=== PATIENT | female | born 1970 | race Hispanic/Latino ===

== ENCOUNTER 2021-01-13 23:11 | Emergency (ER) | payer OTHER ==
[2021-01-13 23:53] LABS: BASOPHILS % (AUTO) 0.4 % (0.0-5.0); EOSINOPHILS % (AUTO) 2.6 % (0.0-8.0); HEMATOCRIT 34.8 % (36-48); LYMPHOCYTES % (AUTO) 24.9 % (21.0-51.0); MEAN CORPUSCULAR HEMOGLOBIN 22.6 pg (27.0-33.0); MEAN CORPUSCULAR HGB CONC 30.5 g/dL (32.0-36.0); MEAN CORPUSCULAR VOLUME 74.2 fL (79-99); MONOCYTES % (AUTO) 11.3 % (3.0-13.0); NEUTROPHILS % (AUTO) 60.5 % (40.0-77.0); PLATELET COUNT (AUTO) 188 K/uL (130-400); RED BLOOD CELL COUNT(AUTO) 4.69 MIL/uL (4.00-5.50); RED CELL DISTRIBUTION WIDTH 16.3 % (11.0-15.5); WHITE BLOOD COUNT (AUTO) 7.7 K/uL (4.8-10.8)
[2021-01-13 23:57] LABS: APPEARANCE,URINE Cloudy (CLEAR); BILIRUBIN,URINE Negative (NEGATIVE); COLOR,URINE Yellow (YELLOW); GLUCOSE, URINE (UA) Negative (NEGATIVE); KETONES,URINE Trace mg/dL (NEGATIVE); LEUKOCYTE ESTERASE ,URINE Trace (NEGATIVE); NITRATE,URINE Negative (NEGATIVE); OCCULT BLOOD,URINE Large (NEGATIVE); PROTEIN,URINE POS 1+ mg/dL (NEGATIVE)
[2021-01-14 00:05] LABS: CREATININE 0.9 mg/dL (0.5-1.5); POTASSIUM 4.2 mmol/L (3.5-5.1)
[2021-01-14 00:10] LABS: ALBUMIN 3.8 g/dL (3.5-5.0); BILIRUBIN,TOTAL 0.2 mg/dL (0.2-1.0); TOTAL PROTEIN, SERUM 8.7 g/dL (6.0-8.3)
[2021-01-14 00:11] LABS: RBC,URINE >100 /HPF (0-1)
[2021-01-14 00:12] LABS: BACTERIA,URINE Moderate /HPF (None Seen); MUCUS,URINE Many LPF (None Seen)
[2021-01-14 00:13] LABS: CALCIUM OXALATE CRYSTALS,UR Rare /LPF (None Seen)
[2021-01-14] MEDS ORDERED: ONDANSETRON HCL 4 MG/2 ML VIAL ONE (00:13)
[2021-01-14] MEDS ORDERED: METOCLOPRAMIDE 10 MG/2 ML VIAL ONE (00:13)
[2021-01-14] MEDS ORDERED: KETOROLAC TROMETHAMINE 30MG/ML ONE (00:13)
[2021-01-14 00:32] LABS: PLATELET MORPHOLOGY LARGE PLTS PRESENT
[2021-01-14] MEDS ORDERED: CEFTRIAXONE SODIUM 2 GM VIAL ONE (01:17)
[2021-01-14] MEDS ORDERED: TAMSULOSIN HCL 0.4 MG CAP.ER.24H ONE (01:17)
[2021-01-14] MEDS ORDERED: SODIUM CHLORIDE 0.9% 50 ML IV ONE (01:18)
== END 2021-01-14 02:00 | disposition home or self-care (01) ==
LOC: EDH 23:11
DX: N23 Unspecified renal colic (principal); E86.0 Dehydration; N13.2 Hydronephrosis with renal and ureteral calculous obstruction
CPT/HCPCS: 36415; 74176; 80053; 81001; 83605; 83690; 85025; 87088; 96361; 96365; 96375; 99284; J0696; J1885; J2405; J2765

== ENCOUNTER 2021-08-02 14:13 | Emergency (ER) | payer OTHER ==
[~2021-08-02] VITALS: Ht 154.9 cm; Wt 55.3 kg
[2021-08-02] MEDS ORDERED: 0.9%NACL 1000ML 1,000 ML IV ONE ×2 (15:00→17:00)
[2021-08-02] MEDS ORDERED: MORPHINE 4 MG SYG IVP ONE (15:00)
[2021-08-02] MEDS ORDERED: ACETAMINOPHEN 325 MG TAB PO ONE (15:00)
[2021-08-02] MEDS ORDERED: ONDANSETRON 4MG INJ IVP ONE (15:00)
[2021-08-02] MEDS ORDERED: KETOROLAC 30MG VIAL (30MG/ML) IVP ONE (15:00)
[2021-08-02 15:18] LABS: APPEARANCE,URINE TURBID (CLEAR); BILIRUBIN,URINE NEGATIVE (NEGATIVE); COLOR,URINE RED (YELLOW); GLUCOSE, URINE (UA) NEGATIVE (NEGATIVE); KETONES,URINE 15 mg/dL (NEGATIVE); LEUKOCYTE ESTERASE ,URINE MODERATE (NEGATIVE); NITRATE,URINE POSITIVE (NEGATIVE); OCCULT BLOOD,URINE LARGE (NEGATIVE); PH,URINE 6.5 (5.0-8.0); PROTEIN,URINE >=300 mg/dL (NEGATIVE)
[2021-08-02 15:21] LABS: HCG,QUAL RESULT NEGATIVE (NEGATIVE)
[2021-08-02 15:29] LABS: BACTERIA,URINE Rare /HPF (None Seen); RBC,URINE TNTC /HPF (0-1); SQUAMOUS EPITHELIAL CELL,UR None Seen /HPF (0-2); WBC,URINE 0-1 /HPF (0-1)
[2021-08-02 15:29] LABS: BASOPHILS % (AUTO) 0.4 % (0.0-5.0); EOSINOPHILS % (AUTO) 1.2 % (0.0-8.0); HEMATOCRIT 26.6 % (36-48); LYMPHOCYTES % (AUTO) 13.4 % (21.0-51.0); MEAN CORPUSCULAR HGB CONC 29.7 g/dL (32.0-36.0); MEAN CORPUSCULAR VOLUME 74.1 fL (79-99); MONOCYTES % (AUTO) 7.5 % (3.0-13.0); NEUTROPHILS % (AUTO) 77.1 % (40.0-77.0); PLATELET COUNT (AUTO) 155 K/uL (130-400); RED BLOOD CELL COUNT(AUTO) 3.59 MIL/uL (4.00-5.50); RED CELL DISTRIBUTION WIDTH 15.7 % (11.0-15.5); WHITE BLOOD COUNT (AUTO) 7.6 K/uL (4.8-10.8)
[2021-08-02 15:40] LABS: CREATININE 0.7 mg/dL (0.5-1.5); POTASSIUM 3.5 mmol/L (3.5-5.1)
[2021-08-02 15:50] LABS: ALBUMIN 3.3 g/dL (3.5-5.0); TOTAL PROTEIN, SERUM 7.2 g/dL (6.0-8.3)
[2021-08-02 16:01] LABS: BILIRUBIN,TOTAL 0.2 mg/dL (0.2-1.0)
[2021-08-02 16:39] VITALS: BP 135/72
[2021-08-02] MEDS ORDERED: PROMETHAZINE HCL 25 MG/ML 1ML AMPULE IM ONE (17:00)
[2021-08-02] MEDS ORDERED: CEPH500C2 PO (17:21)
[2021-08-02] MEDS ORDERED: MEDR10TA PO (17:21)
[2021-08-02] MEDS ORDERED: TRAM50TA4 PO (17:21)
[2021-08-02] MEDS ORDERED: NAPR375T6 PO (17:21)
== END 2021-08-02 19:12 | disposition home or self-care (01) ==
LOC: EDH 14:13
DX: D64.9 Anemia, unspecified (principal); D25.9 Leiomyoma of uterus, unspecified; N92.0 Excessive and frequent menstruation with regular cycle; N94.6 Dysmenorrhea, unspecified; Z79.1 Long term (current) use of non-steroidal anti-inflammatories (NSAID); Z79.899 Other long term (current) drug therapy
CPT/HCPCS: 36415; 74176; 76856; 80053; 81001; 81025; 83690; 84484; 84702; 85025; 87088; 93005; 96361; 96372; 96374; 96375; 99285; J1885; J2270; J2405; J2550; J7030

== ENCOUNTER 2023-01-09 15:11 | Emergency (ER) | payer OTHER, BC ==
[~2023-01-09] VITALS: Ht 152.4 cm; Wt 56.7 kg
[~2023-01-09 15:11] MED LIST: CEPH500C2 PO; MEDR10TA PO; NAPR375T6 PO; TRAM50TA4 PO
[2023-01-09 16:22] LABS: BASOPHILS % (AUTO) 0.3 % (0.0-5.0); EOSINOPHILS % (AUTO) 2.8 % (0.0-8.0); HEMATOCRIT 38.7 % (36-48); LYMPHOCYTES % (AUTO) 17.3 % (21.0-51.0); MEAN CORPUSCULAR HEMOGLOBIN 23.8 pg (27.0-33.0); MEAN CORPUSCULAR HGB CONC 30.2 g/dL (32.0-36.0); MEAN CORPUSCULAR VOLUME 78.7 fL (79-99); MONOCYTES % (AUTO) 7.8 % (3.0-13.0); NEUTROPHILS % (AUTO) 71.5 % (40.0-77.0); PLATELET COUNT (AUTO) 156 K/uL (130-400); RED BLOOD CELL COUNT(AUTO) 4.92 MIL/uL (4.00-5.50); RED CELL DISTRIBUTION WIDTH 17.2 % (11.0-15.5); WHITE BLOOD COUNT (AUTO) 7.4 K/uL (4.8-10.8)
[2023-01-09 16:33] LABS: CREATININE 0.7 mg/dL (0.5-1.5); POTASSIUM 4.1 mmol/L (3.5-5.1)
[2023-01-09 16:37] LABS: ALBUMIN 3.7 g/dL (3.5-5.0); TOTAL PROTEIN, SERUM 8.6 g/dL (6.0-8.3)
[2023-01-09] MEDS ORDERED: DICYCLOMINE HCL 10 MG/5 ML ML PO ONE (17:00)
[2023-01-09] MEDS ORDERED: MAG/ALUM/SIMETH 30 ML UDCUP PO ONE (17:00)
[2023-01-09] MEDS ORDERED: LIDOCAINE HCL 2% VISCOUS 15 ML UDCUP PO ONE (17:00)
[2023-01-09 17:02] LABS: APPEARANCE,URINE CLEAR (CLEAR); BILIRUBIN,URINE NEGATIVE (NEGATIVE); COLOR,URINE LIGHT-YELLOW (YELLOW); GLUCOSE, URINE (UA) NEGATIVE (NEGATIVE); KETONES,URINE NEGATIVE (NEGATIVE); LEUKOCYTE ESTERASE ,URINE NEGATIVE Leu/uL (NEGATIVE); NITRATE,URINE NEGATIVE (NEGATIVE); OCCULT BLOOD,URINE NEGATIVE (NEGATIVE); PH,URINE 7.5 (5.0-8.0); PROTEIN,URINE NEGATIVE (NEGATIVE); UROBILINOGEN,URINE 0.2 mg/dL (0.2-1.0)
[2023-01-09 17:12] LABS: MUCUS,URINE RARE LPF (None Seen); RBC,URINE 0-1 /HPF (0-1); SQUAMOUS EPITHELIAL CELL,UR RARE /HPF (0-2); WBC,URINE 0-1 /HPF (0-1)
[2023-01-09] MEDS ORDERED: ESOM20CA60 PO (18:26)
[2023-01-09 18:43] VITALS: BP 154/90
== END 2023-01-09 19:14 | disposition home or self-care (01) ==
LOC: EDH 15:11
DX: K29.00 Acute gastritis without bleeding (principal); R10.9 Unspecified abdominal pain; Z79.899 Other long term (current) drug therapy; Z98.890 Other specified postprocedural states
CPT/HCPCS: 36415; 76705; 80053; 81001; 83690; 84484; 85025; 93005

== ENCOUNTER 2025-05-26 16:57 | Inpatient (IN) | payer BC ==
[~2025-05-26] VITALS: Ht 154.9 cm; Wt 57.2 kg
[~2025-05-26 16:57] MED LIST changes: +ESOM20CA60 PO; +NAPR-1505 PO; -NAPR375T6 PO
[2025-05-26 18:07] LABS: IMMATURE GRANULOCYTE ABSOLUTE 0.01 K/uL (0-1); NUCLEATED RED BLOOD CELLS 0.0 % (0.0-0.19); PLATELET COUNT (AUTO) 180 K/uL (130-400); RED BLOOD CELL COUNT(AUTO) 4.76 MIL/uL (4.00-5.50); RED CELL DISTRIBUTION WIDTH 12.4 % (11.0-15.5); WHITE BLOOD COUNT (AUTO) 5.0 K/uL (4.8-10.8)
[2025-05-26 18:19] LABS: CREATININE 0.6 mg/dL (0.5-1.0); GLOMERULAR FILTR. RATE CALC 105.0 mL/min (>90); GLUCOSE,RANDOM 77.0 mg/dL (70-105); SODIUM SERUM 141.0 mmol/L (136-145); UREA NITROGEN, BLOOD 10.0 mg/dL (7-18)
--- NOTE | 2025-05-26 18:26 | ERN ---
ED Note History of Present Illness Stated Complaint: COUGH, CONGESTION Chief Complaint: Cough Time Seen by MD: 17:11 Time Seen by Midlevel: 17:11 Dictation: The Patient is a 54-year-old female who presents to the emergency department with cough and nasal congestion, sore throat onset three days ago. Patient also reports nonbloody diarrhea. Denies any fevers. Patient reports she became concerned today because she developed severe chest pain at around 2:00 p.m. that lasted about 20 minutes and then resolved. Allergies: Coded Allergies: No Allergy Information Available (Verified Allergy, Unknown, 08/02/21) No Known Drug Allergies (Unverified Allergy, Unknown, 01/09/23) Home Meds Active Scripts Esomeprazole Magnesium (Nexium 24Hr) 20 Mg Capsule., 20 MG PO DAILY, #30 CAP Prov:SALLY CROCKETT MD 01/09/23 Naproxen (Naproxen) 375 Mg Tablet.dr, 375 MG PO BID for 5 Days, #10 TAB Prov:KAREN BRICENO 08/02/21 Cephalexin (Cephalexin) 500 Mg Capsule, 500 MG PO TID for 10 Days, #30 CAP Prov:KAREN BRICENO 08/02/21 Tramadol Hcl (Tramadol HCl) 50 Mg Tablet, 50 MG PO BID for 5 Days, #10 TAB Prov:KAREN BRICENO 08/02/21 Medroxyprogesterone Acetate (Provera) 10 Mg Tablet, 10 MG PO DAILY for 15 Days, #15 TAB Prov:KAREN BRICENO 08/02/21 Past Medical History Past Medical History: No Pertinent History Surgical History: BTL, Social History: Negative RN Note Reviewed/Agreed w/PFSH: Yes Review of System Dictation Constitutional: Negative for fever,chills, and weight loss Eyes: Negative for injury, pain,redness, and discharge ENT: Negative for injury,pain or swelling positive for sore throat Cardiovascular: Negative for palpitations, and edema positive for chest pain Respiratory: Negative for shortness of breath,and wheezing, positive for cough Abdomen/GI: Negative for abdominal pain, nausea, vomiting, and constipation positive for diarrhea Back: Negative for injury and pain : Negative for injury, bleeding and discharge MS/Extremity: Negative for injury and deformity Skin: Negative for rash, and discoloration Neuro: Negative for headache, weakness, numbness, tingling, and seizure Psych: Negative for suicide ideation, homicidal ideation, and hallucinations Initial Vital Sign VS Vital Signs Date Time Temp Pulse Resp B/P (MAP) Pulse Ox O2 Delivery O2 Flow Rate FiO2 05/26/25 16:58 99.0 89 16 156/93 98 Room Air 0 05/26/25 18:13 21 Physical Exam Dictation Vital Signs reviewed General Appearance: Alert, oriented x 3, no acute distress, well developed, nourished. Head and Face: non-traumatic. Eyes: PERRL, pink conjunctivas, eyelid no trauma, anterior chamber with arcus senilis. Ears: Pinnas intact and no signs of trauma or erythema ear canals clear and no discharge TM no erythema Nose: No discharge, no bleeding. Oropharynx: Mouth normal, tongue pink. pharynx clear,no erythema, tonsils no exudates, no abscesses noted, mucous membrane moist Neck: Supple, non-tender, no thyromegaly, no masses, no JVD, no bruits Breast:Deferred Chest:No tenderness, no crepitus, no paradoxical movement, no retractions Lungs:Clear, well-ventilated, symmetric, no rales, no wheezing, no rhonchi, no stridor, good breath sounds bilaterally Heart: Regular rate, regular rhythm, no murmur, no gallops Vascular: no peripheral edema, Abdomen: Soft, positive bowel sounds, nondistended, no guarding, nontender, no rebound, no masses no hepatomegaly, no splenomegaly, no Arce's sign, no hernias. Rectal: Deferred Genital: Deferred Neurological: Normal speech, motor function intact, sensory function intact Musculoskeletal: Neck nontender, full range of motion, back nontender, full range of motion, Extremities: nontender, full range of motion Skin: Color pink, dry, no turgor, no rash, no lacerations, no abrasions, no contusions. Lymphatic: Deferred Results (Laboratory/Radiology) Laboratory/Radiology Laboratory Tests Test 05/26/25 17:56 05/26/25 18:10 05/26/25 19:11 White Blood Count 5.0 K/uL (4.8-10.8) Red Blood Count 4.76 MIL/uL (4.00-5.50) Hemoglobin 13.6 g/dL (12.0-16.0) Hematocrit 41.7 % (36-48) Mean Corpuscular Volume 87.6 fL (79-99) Mean Corpuscular Hemoglobin 28.6 pg (27.0-33.0) Mean Corpuscular Hemoglobin Concent 32.6 g/dL (32.0-36.0) Red Cell Distribution Width 12.4 % (11.0-15.5) Platelet Count 180 K/uL (130-400) Mean Platelet Volume 11.4 fL (7.5-10.5) H Immature Granulocyte % (Auto) 0.2 % (0-1) Neutrophils (%) (Auto) 53.3 % (40.0-77.0) Lymphocytes (%) (Auto) 29.6 % (21.0-51.0) Monocytes (%) (Auto) 10.5 % (3.0-13.0) Eosinophils (%) (Auto) 6.0 % (0.0-8.0) Basophils (%) (Auto) 0.4 % (0.0-5.0) Neutrophils # (Auto) 2.7 K/uL (1.8-7.7) Lymphocytes # (Auto) 1.5 K/uL (1.0-4.8) Monocytes # (Auto) 0.5 K/uL (0.1-1.0) Eosinophils # (Auto) 0.30 K/uL (0.00-0.70) Basophils # (Auto) 0.02 K/uL (0.00-0.20) Absolute Immature Granulocyte (auto 0.01 K/uL (0-1) Nucleated Red Blood Cells 0.0 % (0.0-0.19) Sodium Level 141 mmol/L (136-145) Potassium Level 4.1 mmol/L (3.5-5.1) Chloride Level 102 mmol/L (101-111) Carbon Dioxide Level 33 mmol/L (21-32) H Blood Urea Nitrogen 10 mg/dL (7-18) Creatinine 0.6 mg/dL (0.5-1.0) Glomerular Filtration Rate Calc 105 mL/min (>90) Random Glucose 77 mg/dL (70-105) Total Calcium 9.3 mg/dL (8.5-10.1) Troponin I High Sensitivity 108 ng/L (4-50) *H 99 ng/L (4-50) *H Influenza Type A Antigen Negative For Type A Influenza Type B Antigen Negative For Type B SARS-CoV-2 Antigen (Rapid) PRESUMPTIVE NEGATIVE Group A Streptococcus Rapid negative (NEGATIVE) REASON: sob ORDERING PHYSICIAN: NATHANIEL MENDEZ HUMIDIFIER OPERATOR PROCEDURE: CXR1VW - CHEST 1VW CLINICAL INFORMATION Shortness of breath COMPARISON None. TECHNIQUE Frontal view chest. FINDINGS Lines and tubes: None Lungs: Clear. Pleura: Unremarkable. No effusion or pneumothorax. Cardiomediastinal Silhouette: Unremarkable. Bones: Normal for age. Soft Tissues: Normal. IMPRESSION No acute cardiopulmonary findings. /[place] Labs Reviewed?: Yes EKG: (+) rhythm (Sinus rhythm) EKG Comment: Date:05/26/2025 Time:1745 Ventricular rate:80 WA interval:146 QRS duration:89 QT/QTc:407/471 EKG interpretation: Sinus rhythm Reviewed by ED Attending no STEMI ED Course ED Course Orders Procedure Category Date Status Time Covid19 (Sars Antigen LAB 05/26/25 Complete Rapid) 17:31 Influenza Type A & B, LAB 05/26/25 Complete Rapid 17:31 Rapid (Group A Strep) LAB 05/26/25 Complete 17:31 Cbc With Differential LAB 05/26/25 Complete 17:31 Chest 1vw RAD 05/26/25 Resulted 17:31 12 Lead Ekg Tracing- EKG 05/26/25 Logged Technical 17:31 Troponin I High LAB 05/26/25 Complete Sensitivity 17:31 Basic Metabolic Panel LAB 05/26/25 Complete 17:31 Guaifenesin-Codeine PHA 05/26/25 Complete Syrup 5ml (Robitussi 18:00 Aspirin 325mg Tab PHA 05/26/25 Complete (Aspirin 325mg Tab) 19:00 Troponin I High LAB 05/26/25 Complete Sensitivity 18:52 Edm Admit Bridge Order ADM 05/26/25 Transmitted 19:58 Vital Signs(Adult CPOE 05/26/25 Transmitted Hospitalist) 20:03 Nurse To Enter Home CPOE 05/26/25 Transmitted Medication 20:03 Admit Orders ADM 05/26/25 Transmitted 20:03 Troponin I High LAB 05/26/25 Logged Sensitivity 23:30 Troponin I High LAB 05/27/25 Verified Sensitivity 05:30 Troponin I High LAB 05/27/25 Verified Sensitivity 11:30 Regular DIET 05/27/25 Transmitted Breakfast Cbc With Differential LAB 05/27/25 Verified 04:00 Basic Metabolic Panel LAB 05/27/25 Verified 04:00 Magnesium LAB 05/27/25 Verified 04:00 Acetaminophen 325 Tab PHA 05/26/25 In Process (Tylenol 325mg Tab 20:30 Ondansetron 4mg PHA 05/26/25 In Process Tablet (Zofran 4mg 20:30 Enoxaparin Sodium 30 PHA 05/27/25 In Process Mg/0.3 Ml (Lovenox) 09:00 Current Medications Medications (Trade) Dose Ordered Sig/Kristie Route PRN Reason Start Time Stop Time Status Last Admin Dose Admin Acetaminophen (TYLenol 325MG TAB) 650 mg Q6H PRN PO MILD PAIN (1-3) 05/26/25 20:30 06/25/25 20:29 Aspirin (Aspirin 325mg Tab) 325 mg ONCE ONCE PO 05/26/25 19:00 05/26/25 19:01 DC 05/26/25 19:10 Enoxaparin Sodium (Lovenox) 30 mg DAILY SQ 05/27/25 09:00 06/26/25 08:59 Guaifenesin/ Codeine Phosphate (RobiTUSSin AC 5 ML SYRUP) 10 ml ONCE ONCE PO 05/26/25 18:00 05/26/25 18:01 DC 05/26/25 18:31 Ondansetron HCl (zoFRAN 4MG TABLET) 4 mg Q6H PRN PO NAUSEA/VOMITING 05/26/25 20:30 06/25/25 20:29 Vital Signs Date Time Temp Pulse Resp B/P (MAP) Pulse Ox O2 Delivery O2 Flow Rate FiO2 05/26/25 20:04 98.1 88 16 124/74 98 Room Air* 0 21 05/26/25 18:13 98.1 81 16 134/88 98 Room Air* 0 21 05/26/25 16:58 99.0 89 16 156/93 98 Room Air 0 Medical Decision Making MDM MDM: The Patient is a 54-year-old female who presents to the emergency department with cough and nasal congestion, sore throat onset three days ago. Patient also reports nonbloody diarrhea. Denies any fevers. Patient reports s he became concerned today because she developed severe chest pain at around 2:00 p.m. that lasted about 20 minutes and then resolved. CBC showed no leukocytosis, no anemia, chemistry showed no electrolyte imbalance, troponin of 108. Chest x-ray showed no acute pathology. Due to patient's chest pain and elevated troponin we will admit for further evaluation and management. Differential diagnosis: Upper respiratory infection, pneumonia, ACS, costochondritis Comorbidities: None Tests considered and not ordered secondary to shared decision making include: none Previous outside records reviewed: none Risk of complication and/or morbidity or mortality of patient management: The patient meets criteria for admission. Need for emergency major/minor surgery: No There are no social concerns with this patient. I independently interpreted the tests I ordered (labs, urinalysis, etc.). I discussed the case with the hospitalist for admission. who accepts admission I discussed the case with the following specialists: none. Historian: pateint. I independently interpreted imaging studies and EKGs that I ordered (US, CT, XR, EKG, etc.). External chart review: none. Medical management and examination interpretation discussions were had by me with other qualified healthcare professionals as indicated for the patient's care. DX & DISP Disposition: Inpatient Decision to Admit Date: May 26, 2025 Decision to Admit Time: 19:59 Departure Impression: Primary Impression: Chest pain Additional Impression: Elevated troponin Condition: Stable Referrals: FREEMAN RYAN MD (PCP) I have reviewed the case, and I agree with, Diagnosis and Plan NATHANIEL MENDEZP May 26, 2025 18:26
[2025-05-26 18:49] LABS: RAPID GROUP A STREP negative (NEGATIVE)
[2025-05-26 18:55] LABS: COVID19 (SARS ANTIGEN RAPID) PRESUMPTIVE NEGATIVE (NEGATIVE)
[2025-05-26] MEDS: ASPIRIN 325MG TAB PO ONE (19:10)
[2025-05-26 19:48] LABS: INFLUENZA TYPE A Negative For Type A (NEGATIVE); INFLUENZA TYPE B Negative For Type B (NEGATIVE)
--- NOTE | 2025-05-26 20:14 | HMCIMG ---
CLINICAL INFORMATION Shortness of breath COMPARISON None. TECHNIQUE Frontal view chest. FINDINGS Lines and tubes: None Lungs: Clear. Pleura: Unremarkable. No effusion or pneumothorax. Cardiomediastinal Silhouette: Unremarkable. Bones: Normal for age. Soft Tissues: Normal. IMPRESSION No acute cardiopulmonary findings. /[place]
--- NOTE | 2025-05-27 06:36 | EKG ---
[facility] Test Date: 2025-05-26 Test Time: 17:45:58 Pat Name: CASSIE CONRAD Department: EDHIP Room: ED 04 Gender: F Client Business Manager: [id number] : 1970 Requested By: NATHANIEL MENDEZ Order Number: [id number] Reading MD: Elliot Luis Measurements Intervals [place] Rate: 80 P: 54 ND: 146 QRS: 36 QRSD: 89 T: 69 QT: 407 QTc: 471 Interpretive Statements Sinus rhythm Compared to ECG 01/09/2023 16:16:16 No significant changes Electronically Signed On 05-27-2025 18:20:32 CDT by Elliot Luis Please click the below link to view image of tracing.
[2025-05-27 06:41] LABS: IMMATURE GRANULOCYTE ABSOLUTE 0.01 K/uL (0-1); NUCLEATED RED BLOOD CELLS 0.0 % (0.0-0.19); PLATELET COUNT (AUTO) 165 K/uL (130-400); RED BLOOD CELL COUNT(AUTO) 4.50 MIL/uL (4.00-5.50); RED CELL DISTRIBUTION WIDTH 12.6 % (11.0-15.5); WHITE BLOOD COUNT (AUTO) 4.4 K/uL (4.8-10.8)
[2025-05-27 06:53] LABS: CREATININE 0.7 mg/dL (0.5-1.0); GLOMERULAR FILTR. RATE CALC 101.0 mL/min (>90); GLUCOSE,RANDOM 90.0 mg/dL (70-105); SODIUM SERUM 140.0 mmol/L (136-145); UREA NITROGEN, BLOOD 12.0 mg/dL (7-18)
[2025-05-27 08:00] VITALS: BP 132/76; PULSE 78; RESP 17; TEMP 97.7
[2025-05-27] MEDS: ENOXAPARIN SODIUM 30 MG/0.3 ML SQ SCH (08:25)
[2025-05-27 08:46] VITALS: O2SAT 98
[2025-05-27 12:00] VITALS: BP_SYST 146; BP_SYST 153; BP_DIAS 71; BP_DIAS 76; PULSE 77; RESP 15; TEMP 97.7
[2025-05-27] MEDS: LORATAdine/pseudophEPHEDrine 5/120 MG 1 EACH TAB.SR.12H PO SCH (13:36)
--- NOTE | 2025-05-27 15:05 | NUR ---
DCP:HOME Pt currently lives alone in her home. Pt does not have any DME, home health, or provider services. Pt states that she is able to complete ADLs independently. PCP is Dr. Alejo Ragsdale and uses [facility] for any RX needs. At PA pt will want to go home and family can assist with transportation. Addendum: 05/27/25 at 1507 by MIKO KAUR SS Amended: Links added.
[2025-05-27 16:00] VITALS: BP 133/75; PULSE 73; RESP 17; TEMP 97.6
[2025-05-27] MEDS: BENZONATATE 100 MG CAPSULE PO SCH ×2 (18:27→20:17)
[2025-05-27] MEDS ORDERED: BENZONATATE 100 MG CAPSULE PO PRN (18:30)
--- NOTE | 2025-05-27 19:39 | CONS ---
CONSULT NOTE: CARDIOLOGY Reason for consult: Chest pain HPI/story at presentation: This is a pleasant 54-year-old female with past medical history as were present with complaints of atypical chest pain. Chest pain was in the setting of cough and associated with this over the last few days. However, persistent pain was subsequently felt associated with elevated troponins and cardiology was consulted for further evaluation management Past medical history: See below Allergies, Meds See chart Review of systems Review of Systems Constitutional: Negative for chills and fever. HENT: Negative for ear discharge and ear pain. Eyes: Negative for photophobia and discharge. Respiratory: Negative for cough, sputum production and stridor. Cardiovascular: Negative for chest pain and palpitations. Gastrointestinal: Negative for diarrhea and vomiting. Genitourinary: Negative for frequency. Musculoskeletal: Negative for myalgias. Skin: Negative for rash. Neurological: Negative for focal weakness and seizures. Endo/Heme/Allergies: Negative for polydipsia. Psychiatric/Behavioral: Negative for hallucinations. Vitals see chart PHYSICAL EXAMINATION GENERAL: The patient is alert and oriented*3 HEENT: Nonicteric sclerae, non traumatic HEART: Regular rate and rhythm with no murmurs LUNGS: Clear to auscultation bilaterally ABDOMEN: No acute issues, non tender GENITAL, RECTAL: deferred SKIN: No rash NEUROLOGIC: NFND EXTREMITIES: No edema ASSESSMENT CHEST PAIN, ELEVATED TROPONIN Atypical presentation The setting of cough and congestion Stress, echo ordered, 05/2025 CORE MEASURES Pending OTHER MEDICAL PROBLEMS Reviewed PLAN 05/27/2025 atypical symptoms, possible cough related chest pain versus underlying issues with infectious etiology but also had some typical anginal features with elevated troponins and therefore, we will rule out cardiogenic etiology with stress test, echocardiogram. Seen and examined 05/27/2025 at around 8 PM. ATTESTATION I was involved substantially in the care of this patient Number and complexity of problems addressed: 1 acute illness with systemic features Amount and or complexity of data Review of prior external note(s) from each unique source: 2+ Ordering of each unique test : 0 Review of the result(s) of each unique test: 2+ Assessment requiring an independent historian(s): No Independent interpretation of test performed by another MD/QHCP/appropriate source (not separately reported) : No Discussion of management or test interpretation with external MD/QHCP/appropriat e source (not separately reported) : No Risk status (cardiac, billing related): Moderate JOY ZAVALETA MD May 27, 2025 19:39
[2025-05-27] MEDS: DOXYCYCLINE HYCLATE 100 MG TABLET PO SCH (20:15)
--- NOTE | 2025-05-27 20:46 | PN ---
MEDICAL MANAGEMENT FOLLOWUP NOTE DATE OF SERVICE: 05/27/2025 SUBJECTIVE: The patient is seen and examined at bedside today. No fever. No chills. Complains of some cough, sore throat. The patient also complains of rhinorrhea. No bleeding tendency. No rashes and she is tolerating antibiotic. PHYSICAL EXAMINATION: VITAL SIGNS: Temperature 98.3. EYES: No icterus. Pupils equal and reactive. HENT: No oral thrush seen. Moist oral mucosa. NECK: Supple. No JVD or thyromegaly. LUNGS: Good air entry. No rales. No rhonchi. CARDIOVASCULAR SYSTEM: S1 and S2 regular. No murmur heard. ABDOMEN: Full, soft, nontender. Bowel sound is present CENTRAL NERVOUS SYSTEM: Awake, alert, oriented x 3. No focal deficits. SKIN: No rashes. No itchiness. LYMPHATIC: No peripheral lymphadenopathy. BACK: No deformity. No pressure ulcer. MUSCULOSKELETAL: No joint swelling. No erythema or tenderness. ASSESSMENT: A 54-year-old female presented with fever, weakness, and chest pain. Current problems include: * Elevated troponin. * Pneumonia. * Possible sinusitis. * DVT. PLAN: * Continue ceftriaxone. * Continue Claritin. * Continue doxycycline. * Continue pain management. * Continue nutritional supports. * Monitor electrolytes. * The patient will be followed up closely. TID: [id number] RECEIPT: [id number]
--- NOTE | 2025-05-27 23:08 | HP ---
DATE OF ADMISSION: 05/26/2025 HISTORY AND PHYSICAL PRESENTING COMPLAINT: Cough, nasal congestion and fever. HISTORY OF PRESENT ILLNESS: This is a 54-year-old female with no significant past medical history, presented to the Emergency Room with cough and nasal congestion. The patient's symptoms have been going on for 3 days. The patient decided to come to the Emergency Room today due to chest pain. Pain localized to both sides, but was on the right. The patient denied palpitation or orthopnea. While in the ER, the patient was found with troponin of 108. EKG shows normal sinus with non-STEMI. PAST MEDICAL HISTORY: None. PAST SURGICAL HISTORY: * section. * Bilateral tubal ligation. ALLERGIES: No known drug allergies. HOME MEDICATIONS: None. SOCIAL HISTORY: No alcohol, tobacco or illicit drug use. FAMILY HISTORY: Noncontributory. REVIEW OF SYSTEMS: Greater than 10 systems were reviewed, negative except as documented above. PHYSICAL EXAMINATION: GENERAL: Middle-aged female, awake. VITAL SIGNS: Temperature 97.7, pulse 70, respiratory rate 18, BP 134/76. EYES: No icterus. Pupils equal and reactive. HENT: No oral thrush seen. Moist oral mucosa. NECK: Supple. No JVD or thyromegaly. LUNGS: Good air entry. Crackles bilaterally. CARDIOVASCULAR SYSTEM: S1 and S2 regular. No murmur heard. ABDOMEN: Full, soft, nontender. Bowel sounds are present. CENTRAL NERVOUS SYSTEM: Awake, alert, oriented x 3. No focal deficits. SKIN: No rashes. No itchiness. LYMPHATIC: No peripheral lymphadenopathy. BACK: No deformity. No pressure ulcer. MUSCULOSKELETAL: No joint swelling, erythema or tenderness. LABORATORY DATA: Sodium 141, potassium 4.1, BUN 10, creatinine 0.6. WBC 5.0, hemoglobin 13.6, platelets 180. Influenza antigen negative. COVID-19 negative. RADIOLOGY: Chest x-ray unremarkable. ASSESSMENT: A 54-year-old female presented with chest pain, cough, fever and congestion. Current problems include: * Atypical chest pain. * Pneumonia. * Cough. * Elevated troponin. PLAN: * Admit the patient to medical floor telemetry. * Troponin will be trended. * Start the patient on Lovenox. * Start the patient on ceftriaxone. * The patient will be given doxycycline. * The patient also will be given Claritin. * Cardiology evaluation. * Monitor electrolyte and correct as needed. TID: [id number] RECEIPT: [id number] MTDD
--- NOTE | 2025-05-28 06:14 | NUR ---
PT NOTIFIED NOT TO EAT OR DRINK PRIOR TO NM CARDIAC STRESS TEST PER PROVIDER.
[2025-05-28 06:18] LABS: NUCLEATED RED BLOOD CELLS 0.0 % (0.0-0.19); PLATELET COUNT (AUTO) 157.0 K/uL (130-400); RED BLOOD CELL COUNT(AUTO) 4.68 MIL/uL (4.00-5.50); RED CELL DISTRIBUTION WIDTH 12.6 % (11.0-15.5); WHITE BLOOD COUNT (AUTO) 4.9 K/uL (4.8-10.8)
--- NOTE | 2025-05-28 06:24 | NUR ---
PT TOLD NURSE THEY HAVE BEEN NPO SINCE 10 PM 05/27/25 AND HAVE NOT HAD ANYTHING TO EAT OR DRINK. PT EDUCATED ON THE IMPORTANCE OF BEING NPO PRIOR TO NM CARDIAC STRESS TEST. PT VERBALIZED UNDERSTANDING.
[2025-05-28 06:47] LABS: CREATININE 0.8 mg/dL (0.5-1.0); GLOMERULAR FILTR. RATE CALC 86.0 mL/min (>90); GLUCOSE,RANDOM 94.0 mg/dL (70-105); SODIUM SERUM 139.0 mmol/L (136-145); UREA NITROGEN, BLOOD 18.0 mg/dL (7-18)
--- NOTE | 2025-05-28 07:12 | NUR ---
ASSUMED PATIENT CARE AT THIS TIME
--- NOTE | 2025-05-28 07:51 | HMCIMG ---
EXAM: CR Paranasal Sinuses, 4 views. CLINICAL HISTORY: Sinusitis. COMPARISON: None provided. FINDINGS: No acute fracture or aggressive appearing osseous lesion. The paranasal sinuses are grossly clear. No air-fluid level or paranasal opacification. Unremarkable soft tissues. IMPRESSION: No facial fracture. Grossly sinuses. /[place]
--- NOTE | 2025-05-28 09:59 | NUR ---
PER SANTY MARBLE POLISHER HAND, OK FOR PATIENT TO EAT BREAKFAST BUT TO AVOID CAFFEINE BEFORE STRESS TEST AT NOON TIME, PATIENT RESTING IN BED, CALL LIGHT IN REACH
[2025-05-28] MEDS: REGADENOSON 0.4 MG/5 ML PF SYG IVP ONE ×2 (12:54→12:58)
--- NOTE | 2025-05-28 14:23 | NUR ---
UNABLE TO DO 12PM VITALS DUE TO PATIENT BEING IN [place]
[2025-05-28 15:00] VITALS: O2SAT 99
--- NOTE | 2025-05-28 15:11 | NUR ---
REPORT GIVEN TO MARIE BEAVER, REJI SENT UP WITH PATIENT
[2025-05-28 15:30] VITALS: BP 141/76; PULSE 85; RESP 18; TEMP 97.5
--- NOTE | 2025-05-28 18:33 | HMCSR ---
APPROVED REPORT Height: 5 ft 1in Weight: 126 lbs TEST INDICATIONS Chest Pain The imaging protocol used to acquire images was Rest Tc-99m/stress Tc-99m 1 day Consent: The procedure was explained and understood by the patient. Informerd consent was witnessed Deepthi Mcqueen RN First, low dose rest was performed then high dose stress. RESTING DATA: The resting ekg shows: NSR Rest SPECT myocardial perfusion imaging was performed in supine position minutes following the intra venous injection of 11 mCi of Tc-99m Tetrofosmin. Time of rest injection: 12:30: Date: 05/28/2025 PHARMACOLOGIC STRESS: Pharmacologic stress test was performed by injecting regadenoson 0.4 mg IV push followed by the intra venous injection of 30 mCi of Tc-99m Tetrofosmin. Time of stress injection: 14:20: Date: 05/28/2025 Heart Rate at time of stress injection: 81 bpm. Gated Stress SPECT was performed 60 minutes after stress injection. The images were gated to evaluate regional wall motion and calculate left ventricular ejection fracti on. STRESS DETAILS Reason for Termination: Infusion complete Stress Symptoms: [place] Max HR Achieved: 121 bpm % of APMHR Achieved: 87 Max Blood Pressure: 138/62 mmHg Stress ECG: NSR LV PERFUSION Evidence of a large area of mild ischemia involving the anterior wall. EF was normal. Conclusion Evidence of a large area of mild ischemia involving the anterior, anteroseptal wall. EF was normal.
--- NOTE | 2025-05-28 18:37 | HMCSR ---
APPROVED REPORT EXAM: Two-dimensional and M-mode echocardiogram with Doppler and color Doppler. INDICATION ICD: Chest Pain 2D Dimensions RVDd2.9 cmLVEF(%)60.7 (>50%)LVED Vol(simp.)60.9 mL IVSd0.7 (0.7-1.1cm)FS(%)32 %LVES Vol(simp.)28.2 mL LVDd4.1 (3.8-5.6cm)LA (2D)2.8 (1.6-4.0cm)LVEF(%, simp.)54 % PWd1.0 (0.7-1.1cm)Ao Root(2D)2.1 (2.0-3.7cm)LA ESV INDEX (BP)18.18 mL/m2 LVDs2.8 (2.5-4.0cm)LVOT diam1.9 (1.8-2.4cm) Deformation Strain Apical 4-17.0 % Apical 2-15.2 % Apical 3-16.9 % Global Strain-16.3 % M-Mode Dimensions LA (MM)2.6 (1.6-4.0cm) Ao Root(MM)2.3 (2.0-3.7cm) Aortic Valve AoV Vmax1.2 m/Melanie Peak GR5.9 mmHgLVOT Vmax0.9 m/s AoV VTI0.2 mAo Mean GR3.2 mmHgLVOT VTI0.17 m TAHIR (VMAX)1.96 cm2AVA (VTI) 1.9 cm2 Mitral Valve MV E Vmax55.8 cm/sDECEL Cbyy795 ms MV A Vmax59.0 cm/sP 1/2 T36 ms E/A ratio0.9MVA (PHT)6.2 cm2 TDI E/E' Medial8.6E/E' Lateral6.9 Medial E' Peak V6.48 cm/sLateral E' Peak V8.03 cm/s Tricuspid Valve TR Vmax2.2 m/sRVSP18.2 mmHg TR Peak GR21.0 mmHg Left Ventricle The left ventricle is normal size. Normal wall motion There is normal left ventricular wall thickness . LVEF is 50-55%. The left ventricular diastolic function is normal. Right Ventricle The right ventricle is normal size. Right ventricular systolic function is mildly reduced. Atria The left atrium size is normal. The right atrium size is normal. Aortic Valve The aortic valve is normal in structure. No aortic regurgitation is present. There is no aortic valvu lar stenosis. Mitral Valve The mitral valve is normal in structure. There is no mitral valve regurgitation noted. There is no mi tral valve stenosis. Tricuspid Valve The tricuspid valve is normal in structure. There is trace tricuspid valve regurgitation noted. Pulmonic Valve The pulmonary valve is normal in structure. There is no pulmonic valvular regurgitation. Great Vessels The aortic root is normal in size. The IVC is normal in size and collapses >50% with inspiration. Pericardium There is no pericardial effusion. Conclusion LVEF is 50-55%. The left ventricular diastolic function is normal. There is normal left ventricular wall thickness. Normal wall motion There is no pericardial effusion. Normal pulmonary pressures Study quality was adequate
--- NOTE | 2025-05-28 19:41 | NUR ---
PER PATIENT SHE WILL BE LEAVING AMA AT 1999. EXPLAINED STILL PENDING RESULTS FOR CANDY STRESS TEST AND 2D ECHO. ALSO EXPLAINED WOULD LEAVE WITH NO PRESCRIPTIONS AND INSURANCE MAY NOT PAY FOR VISIT IF SHE LEAVES AMA. PATIENT VERBALIZED UNDERSTANDING. SHE HAS ALSO TAKEN OUT OWN IV TO LEAVE.
--- NOTE | 2025-05-28 20:00 | NUR ---
HOME WITHOUT MEDICAL ADVISE Lexiscan stress test result in stating a large area of mild ischemia involving the anterior wall with the EF normal. Went to update the pt about the result and she wasn't in the room already. Already left home against medical advise. Initially refused to sign the discharge against medical advise paper initially stating that she will wait to be told about the Lexiscan stress test result but just left to go home without waiting for the nurse. ROMARIO Deluna saw the pt left the room and went straight to the elevator. Had taken off her monitoring manager even before pulling out her own piv line, charge nurse Fely and brew house supervisor Bryon made aware.
--- NOTE | 2025-05-29 10:56 | PN ---
MEDICAL MANAGEMENT FOLLOWUP NOTE DATE OF SERVICE: 05/28/2025 SUBJECTIVE: The patient is seen and examined at bedside today. No fever or chills. She has some cough, was improving. No sore throat. No rhinorrhea or earache. No neck pain or neck swelling. Denies rashes or itchiness. No depression. No suicidal ideation. The patient is seen by Cardiology and is scheduled to undergo stress test today. PHYSICAL EXAMINATION: VITAL SIGNS: Temperature 98.9. EYES: No icterus. Pupils equal and reactive. HENT: No oral thrush seen. Moist oral mucosa. NECK: Supple. No JVD or thyromegaly. LUNGS: Good air entry. No rales. No rhonchi. CARDIOVASCULAR SYSTEM: S1 and S2 regular. No murmur heard. ABDOMEN: Full, soft, nontender. Bowel sound is present. CENTRAL NERVOUS SYSTEM: Awake, alert, oriented x 3. No focal deficits. SKIN: No rashes. No itchiness. LYMPHATIC: No peripheral lymphadenopathy. BACK: No deformity. No pressure ulcer. MUSCULOSKELETAL: No joint swelling. No erythema or tenderness ASSESSMENT: A 54-year-old female presented with cough, shortness of breath and chest pain. CURRENT PROBLEMS: Include: * Pneumonia. * Possible viral syndrome. * Elevated troponin. * Chest pain. * Cough. PLAN: * Continue ceftriaxone. * Continue doxycycline. * Continue aspirin. * Continue Lovenox. * Continue oxygen. * Continue nutritional support. * Continue pain management. TID: [id number] RECEIPT: [id number]
--- NOTE | 2025-05-30 19:38 | DS ---
DATE OF DISCHARGE: 05/28/2025 DISCHARGE SUMMARY PRESENTING COMPLAINT: Cough, nasal congestion and sore throat. HOSPITAL COURSE: A 54-year-old female with no significant past medical history, presented with cough and shortness of breath. The patient was admitted as a case of possible pneumonia. The patient also complained of chest pain, found to have positive troponin. She was seen by Cardiology. The patient was treated with IV antibiotic. A 2D echocardiogram was done, which shows area of ischemia involving the anterior wall. EF was normal. The patient has decided to leave against medical advice before she could be reevaluated with a stress test result. FINAL DISCHARGE DIAGNOSES: * Pneumonia. * Possible viral syndrome. * Elevated troponin. * Chest pain. * Cough. PLAN: The patient decided to leave against medical advice. Risks of leaving against medical advice including chest pain, sepsis, myocardial infarction, and possible explained to the patient, which she verbalized understanding.. TID: [id number] RECEIPT: [id number] [facility]
== END 2025-05-28 20:00 | disposition home or self-care (01) | DRG 195 ==
LOC: EDH 16:57 → EDHIP 20:03 → 3DH 05-28 15:30
PROVIDERS: ADMIT Internal Medicine Infectious Disease; ATTEND Internal Medicine Infectious Disease
PROC: 4A02XM4 Measurement of Cardiac Total Activity, External Approach (ICD-10-PCS; principal; 2025-05-28)
PROC: 3E073KZ Introduction of Other Diagnostic Substance into Coronary Artery, Percutaneous Approach (ICD-10-PCS; 2025-05-28)
DX: J18.9 Pneumonia, unspecified organism (principal); R07.89 Other chest pain; Z98.891 History of uterine scar from previous surgery; Z98.51 Tubal ligation status; B34.9 Viral infection, unspecified
CPT/HCPCS: 36415; 70220; 71045; 78452; 80048; 83735; 84484; 85025; 85027; 87426; 87804; 87880; 93005; 93017; 93306; 93356; 99285; A9500; G0378; J0696; J1650; J2785; Q0162